=== PATIENT | male | born 1945 | race Caucasian/White ===

== ENCOUNTER 2019-07-23 06:42 | Inpatient (IN) | payer MEDICARE, BC ==
[2019-07-20 14:25] LABS: BASOPHILS % (AUTO) 0.6 % (0-1); EOSINOPHILS # (AUTO) 0.2 X10'3 (0-0.9); EOSINOPHILS % (AUTO) 2.8 % (0-6); HEMOGLOBIN A1C 6.6 % (4.5-6.2); LYMPHOCYTES # (AUTO) 2.3 X10'3 (1.1-4.8); LYMPHOCYTES % (AUTO) 29.1 % (21-51); MEAN CORPUSCULAR HEMOGLOBIN 30.9 PG (27.0-31.0); MEAN CORPUSCULAR HGB CONC 34.1 g/dL (33.0-36.5); MEAN CORPUSCULAR VOLUME 90.6 FL (78-98); MONOCYTES # (AUTO) 0.8 X10'3 (0-0.9); MONOCYTES % (AUTO) 9.6 % (2-12); NEUTROPHILS # (AUTO) 4.5 X10'3 (1.8-7.7); NEUTROPHILS % (AUTO) 57.9 % (42-75); PRE OP HEMATOCRIT 45.4 % (42.0-52.0); PRE OP HEMOGLOBIN 15.5 g/dL (14.0-17.9); PRE OP PLATELET COUNT 222 X10'3 (140-440); RED BLOOD COUNT 5.01 X10'6 (4.70-6.10); RED CELL DISTRIBUTION WIDTH 12.9 % (11.5-14.5)
[2019-07-20 14:34] LABS: ALBUMIN 3.6 G/DL (3.4-5.0); ALBUMIN/GLOBULIN RATIO 0.9 (1.1-1.5); ALKALINE PHOSPHATASE 52 IU/L (46-116); BLOOD UREA NITROGEN 32 MG/DL (7-18); BUN/CREATININE RATIO 20.3 (5.4-32.0); CALCIUM 9.1 MG/DL (8.5-10.1); CHLORIDE 108 MMOL/L (99-107); CREATININE 1.58 MG/DL (0.60-1.10); PRE OP ALT 36 U/L (30-65); PRE OP ANION GAP 10 (8-16); PRE OP AST 23 U/L (10-37); PRE OP BILIRUB, TOTAL 0.5 MG/DL (0.0-1.0); PRE OP GLUCOSE 153 MG/DL (70-104); PRE OP POTASSIUM 4.2 MMOL/L (3.4-5.1); PRE OP SODIUM 145 MMOL/L (135-145); TOTAL CARBON DIOXIDE 27.5 MMOL/L (24-32); TOTAL PROTEIN 7.8 G/DL (6.4-8.2); eGFR 43 ML/MIN
[~2019-07-23] VITALS: Ht 175.3 cm; Wt 106.6 kg
[2019-07-23] VITALS (16 sets, daily range): BP systolic 123–169; BP diastolic 58–99
[~2019-07-23 06:42] MED LIST: ASPI-611 PO; DYN250C PO; FOLI0.4T2 PO; LOSA1TAB36 PO; METF1000 PO; OMEG1CAP2 PO; ROSU20TA2 PO; VIT1CAPS9 PO
[2019-07-23] MEDS ORDERED: losartan 50mg tablet PO ONE (07:00)
[2019-07-23] MEDS ORDERED: famotidine 20mg tablet PO ONE (07:00)
[2019-07-23] MEDS ORDERED: ringers solution, lacted 1,000 ML IV SCH ×2 (07:00→10:41)
[2019-07-23] MEDS ORDERED: cefazolin/dext.iso 2gm/50ml 50 ML IV ONE (07:30)
[2019-07-23] MEDS ORDERED: ROPIVAcaine 0.5% (5mg/ml) 30ml vial ONE ×2 (08:12→13:05)
[2019-07-23] MEDS ORDERED: ketorolac trometh. 30mg/ml inj. ONE (08:12)
[2019-07-23] MEDS ORDERED: tetracaine 1% (10mg/ml) pres. free inj. ONE (10:14)
[2019-07-23] MEDS ORDERED: VANCOMYCIN INJ 1000 MG in NORMAL SALINE 250ml IV.SOLN IV ONE (10:24)
[2019-07-23] MEDS ORDERED: cefazolin/dext.iso 2gm/100 ML IV ONE (10:24)
[2019-07-23] MEDS ORDERED: tranexamic acid inj. 1,060 MG in normal saline 100ml IV soln 100 ML IV ONE (10:30)
[2019-07-23] MEDS ORDERED: ROPIVAcaine 0.2%/PF PAIN PUMP 550 ML INTERSCALE SCH (10:41)
[2019-07-23] MEDS ORDERED: ROPIVAcaine 0.2%/PF PAIN PUMP 400 ML ADDCANAL SCH (10:41)
[2019-07-23] MEDS ORDERED: labetalol 20mg/4ml (5mg/ml) syringe IV PRN (10:45)
[2019-07-23] MEDS ORDERED: morphine 4 MG/ML inj SYRINge IV PRN ×2 (10:45)
[2019-07-23] MEDS ORDERED: hydrALAZINE 20mg/ml inj. IV PRN (10:45)
[2019-07-23] MEDS ORDERED: fentaNYL/PF 50MCG/1 ML 2ML syringe IV PRN ×2 (10:45)
[2019-07-23] MEDS ORDERED: diphenhydrAMINE 50 mg/ml inj IV PRN (10:45)
[2019-07-23] MEDS ORDERED: ondansetron/PF 4mg/2ml inj IV PRN ×2 (10:45)
[2019-07-23] MEDS ORDERED: sevoflurane 250ml liquid IH ONE (10:46)
[2019-07-23] MEDS ORDERED: fentaNYL/PF 50MCG/1 ML 2ML syringe ONE (10:48)
[2019-07-23] MEDS ORDERED: MIDAZolam 1mg/ml 10ml vial ONE (10:48)
[2019-07-23] MEDS ORDERED: morphine /PF 1mg/ml 10ml inj. ONE (10:49)
[2019-07-23] MEDS ORDERED: LIDOcaine 2% (20mg/ml) 5ml vial ONE (11:26)
[2019-07-23] MEDS ORDERED: propofol inj 20 ML IV ONE (11:26)
[2019-07-23] MEDS ORDERED: ePHEDrine 50MG/ML INJ. ONE (12:04)
[2019-07-23] MEDS ORDERED: magnesium hydroxide 30ml (MOM) UD suspension PO PRN (14:00)
[2019-07-23] MEDS ORDERED: HYDROmorphone inj. 0.5 MG/0.5 ML DISP.SYRIN IV PRN (14:00)
[2019-07-23] MEDS ORDERED: diphenhydrAMINE 25mg capsule PO PRN ×2 (14:00)
[2019-07-23] MEDS ORDERED: acetaminophen 325mg tablet PO PRN (14:00)
[2019-07-23] MEDS ORDERED: bisacodyl 10mg suppository rectal RC PRN (14:00)
[2019-07-23] MEDS ORDERED: HYDROmorphone 1 mg/ml syringe IV PRN (14:00)
--- NOTE | 2019-07-23 14:10 | NUR ---
Received from OR via BED , accompanied by Anesthesiologist DR DURHAM and report given by Anesthesiolgist. PATIENT WAKING UP, DENIES PAIN, V/S WNL, NEUROVASCULAR CHECKS INTACT, 18G PIV LUE , GOLDY DRESSING TO LEFT KNEE CDI W/ COLD POWDER PACK AND ON QUE BALL W/ SCD ON. F/C DRAINING CLEAR YELLOW URINE. SENSATION T-11 .
--- NOTE | 2019-07-23 15:10 | NUR ---
PATIENT A&OX4, DENIES PAIN, V/S WNL, NEUROVASCULAR CHECKS INTACT, 18G PIV LUE , GOLDY DRESSING TO LEFT KNEE CDI W/ COLD POWDER PACK AND ON QUE BALL W/ SCD ON. F/C DRAINING CLEAR YELLOW URINE. SENSATION T-11. PATIENT TAKEN TO 4024B WITH ALL BELONGINGS AND HOOKED UP TO MONITORS IN ROOM AND REPORT GIVEN TO INTERNAL GRINDER WHO HAS TAKEN OVER PATIENT CARE.
[2019-07-23] MEDS: acetaminophen 325mg tablet PO SCH ×2 (16:09→20:00)
[2019-07-23] MEDS: ceFAZolin 1GM/D5W- ADD-VANTAGE 50 ML IV SCH ×2 (16:33→23:48)
[2019-07-23] MEDS ORDERED: tranexamic acid inj. 1,000 MG in normal saline 100ml IV soln 100 ML IV ONE (17:00)
[2019-07-23] MEDS: potassium cl 20mEq in 1/2 NS 1,000 ML IV SCH ×2 (17:12→23:48)
[2019-07-23] MEDS ORDERED: vancomycin/NS 1 GM ADD-VANTAGE 250 ML IV SCH (20:00)
[2019-07-23] MEDS ORDERED: metFORMIN 500mg tablet PO SCH (20:00)
[2019-07-23] MEDS: ondansetron/PF 4mg/2ml inj IV PRN (20:39)
[2019-07-23] MEDS: sennosides 8.6mg tablet PO SCH (21:00)
[2019-07-23] MEDS ORDERED: dextrose 50%-water 50ml dispensing syringe IV PRN ×2 (21:05)
[2019-07-23] MEDS ORDERED: glucagon, human recombinant 1mg kit SUBCUT PRN (21:05)
[2019-07-23] MEDS ORDERED: dextrose ORAL solution 15 GM/59 ML bottle PO PRN ×2 (21:05)
[2019-07-23] MEDS ORDERED: MESSAGE TO PHARMACY PO ONE (21:05)
[2019-07-24 02:00] VITALS: BP 140/69
[2019-07-24] MEDS: acetaminophen 325mg tablet PO SCH ×4 (02:00→19:24)
[2019-07-24] MEDS: oxyCODONE IR 5mg (immed. release) tablet PO PRN ×5 (04:26→19:25)
--- NOTE | 2019-07-24 04:44 | NUR ---
Hobbs catheter removed per post op protocol. Pt tolerated well. No bleeding, pain, or s/sx of trauma noted.
[2019-07-24 06:17] LABS: BASOPHILS % (AUTO) 0.4 % (0-1); EOSINOPHILS # (AUTO) 0.2 X10'3 (0-0.9); EOSINOPHILS % (AUTO) 1.6 % (0-6); HEMATOCRIT 37.3 % (42.0-52.0); HEMOGLOBIN 12.8 g/dl (14.0-17.9); LYMPHOCYTES # (AUTO) 1.8 X10'3 (1.1-4.8); LYMPHOCYTES % (AUTO) 18.2 % (21-51); MEAN CORPUSCULAR HEMOGLOBIN 31.2 PG (27.0-31.0); MEAN CORPUSCULAR HGB CONC 34.4 g/dL (33.0-36.5); MEAN CORPUSCULAR VOLUME 90.6 FL (78-98); MEAN PLATELET VOLUME 8.2 FL (7.4-10.4); MONOCYTES # (AUTO) 1.6 X10'3 (0-0.9); MONOCYTES % (AUTO) 15.9 % (2-12); NEUTROPHILS # (AUTO) 6.4 X10'3 (1.8-7.7); NEUTROPHILS % (AUTO) 63.9 % (42-75); PLATELET COUNT 169 X10'3 (140-440); RED BLOOD COUNT 4.11 X10'6 (4.70-6.10); RED CELL DISTRIBUTION WIDTH 13.1 % (11.5-14.5)
[2019-07-24 06:35] LABS: ANION GAP 11 (8-16); CHLORIDE 107 MMOL/L (99-107); POTASSIUM 3.7 MMOL/L (3.5-5.1); SODIUM 141 MMOL/L (135-145); TOTAL CARBON DIOXIDE 22.7 MMOL/L (24-32)
[2019-07-24 06:57] VITALS: BP 154/84
[2019-07-24] MEDS ORDERED: ALPRAZolam 0.5mg tablet PO ONE (07:45)
[2019-07-24] MEDS ORDERED: aspirin 81mg tablet.DR PO SCH (08:00)
[2019-07-24] MEDS: ondansetron/PF 4mg/2ml inj IV PRN (08:16)
[2019-07-24] MEDS: potassium cl 20mEq in 1/2 NS 1,000 ML IV SCH ×3 (08:16→21:57)
[2019-07-24] MEDS: losartan 50mg tablet PO SCH (08:50)
[2019-07-24] MEDS: HYDROchlorothiazide 12.5mg capsule PO SCH (08:52)
[2019-07-24] MEDS: folic acid 1mg tablet PO SCH (08:53)
[2019-07-24] MEDS: atorvastatin 20mg tablet PO SCH (08:54)
[2019-07-24] MEDS: aspirin 325mg tablet PO SCH (09:00)
[2019-07-24] MEDS: OMEGA-3/DHA/EPA/FISH OIL 1 EACH CAPSULE.DR PO SCH (09:50)
[2019-07-24 10:08] VITALS: BP 150/61
[2019-07-24 11:05] VITALS: BP 143/76
--- NOTE | 2019-07-24 11:38 | NUR ---
Student Medication Administration:For this medication-pass time frame [id number], all medications were reviewed, administered and documented per hospital policy by Colt Morales. Student documentation:I have reviewed and agree with all interventions, assessments performed and documented by Colt Morales.
--- NOTE | 2019-07-24 11:58 | NUR ---
Pt report given to nurse.
--- NOTE | 2019-07-24 14:56 | NUR ---
Joint replacement consult: Pt s/p TKA-L PO 25% first meal post-op. Noted to have nausea and vomiting last night. Pt/SO seen by RD for written/verbal high protein ed w/ RD contact information provided. Hx T2DM A1C <7. Pt agrees to chocolate ensure pudding BIDLD; dietary notified. Would benefit from ONS change once PO improves to optimize carbs on meals. LBM 07/22. Will continue to monitor for additional protein needs post-op. Addendum: 07/24/19 at [address] Amended: Links added.
[2019-07-24 18:00] VITALS: BP 142/69
[2019-07-24] MEDS: insulin Lispro (HumaLOG) vial - multi-dose SQ SCH (19:20)
[2019-07-24] MEDS: sennosides 8.6mg tablet PO SCH (21:00)
[2019-07-24] MEDS: insulin glargine (Lantus) pen - multi-dose SQ SCH (21:02)
[2019-07-24 22:00] VITALS: BP 159/74
--- NOTE | 2019-07-24 23:58 | NUR ---
Pt very confused at change of shift 1829. Pt trying to get out of bed and pull all lines, pulling at ON-Q pump and gown and pulling down his knee wrap. Pt d/c'd the ON-Q pump shortly thereafter. Once settled in, and encouraged not to pull at items, encouraged to eat dinner meal, staff left pt alone for short time. RN returned to check on pt shortly thereafter and found pt pulled his GOLDY dressing half off. RN got help to protect pt from touching wound site and proceeded to clean with clorhexidine swab and replace GOLDY dressing, saving black sx tape inside. Educated pt for safety but pt is still quite confused. moved pt to rm 4017 near to [facility] station. Gave pain medication.
[2019-07-25] MEDS: oxyCODONE IR 5mg (immed. release) tablet PO PRN ×2 (00:43→04:51)
[2019-07-25] MEDS: acetaminophen 325mg tablet PO SCH ×2 (01:55→08:03)
--- NOTE | 2019-07-25 05:05 | NUR ---
Daughter Layne called to ask about her father's state of confusion. She states that "this is not my father." he is confused and did not know the people in the room. She would like to talk to the MD and possibly get a CT to r/o stroke. Upon suggestion and upon assessment, the pt does not show s/s of stroke. Spoke to Howard Bauer NP about this and she agrees that there is no stroke symptoms. It is possible the pt is having trouble clearing the anesthesia. Pt is 2person Max assist with Steady lift and cannot perform a basic stand, or sit at bedside r/t his bilateral knee pain, as well as strength is very weak.
[2019-07-25 05:15] LABS: BASOPHILS % (AUTO) 0.3 % (0-1); EOSINOPHILS % (AUTO) 0.2 % (0-6); HEMATOCRIT 38.6 % (42.0-52.0); HEMOGLOBIN 13.2 g/dl (14.0-17.9); LYMPHOCYTES # (AUTO) 1.7 X10'3 (1.1-4.8); LYMPHOCYTES % (AUTO) 11.6 % (21-51); MEAN CORPUSCULAR HEMOGLOBIN 30.8 PG (27.0-31.0); MEAN CORPUSCULAR HGB CONC 34.1 g/dL (33.0-36.5); MEAN CORPUSCULAR VOLUME 90.2 FL (78-98); MEAN PLATELET VOLUME 8.3 FL (7.4-10.4); MONOCYTES # (AUTO) 2.4 X10'3 (0-0.9); MONOCYTES % (AUTO) 15.9 % (2-12); NEUTROPHILS # (AUTO) 10.7 X10'3 (1.8-7.7); PLATELET COUNT 179 X10'3 (140-440); RED BLOOD COUNT 4.28 X10'6 (4.70-6.10); RED CELL DISTRIBUTION WIDTH 13.2 % (11.5-14.5); WHITE BLOOD COUNT 14.9 X10'3 (4.5-11.0)
--- NOTE | 2019-07-25 05:47 | NUR ---
report given to emelia DELEON.
[2019-07-25 06:59] LABS: PLATELET ESTIMATE NORMAL; TOTAL CELLS COUNTED 100
[2019-07-25 08:05] LABS: ALANINE AMINOTRANSFERASE 20 U/L (12-78); ALBUMIN/GLOBULIN RATIO 0.8 (1.1-1.5); ALKALINE PHOSPHATASE 46 IU/L (46-116); ANION GAP 9 (8-16); ASPARTATE AMINO TRANSFERASE 44 U/L (10-37); BILIRUBIN,TOTAL 1.2 MG/DL (0.1-1.0); BLOOD UREA NITROGEN 26 MG/DL (7-18); BUN/CREATININE RATIO 18.1 (5.4-32.0); CALCIUM 8.7 MG/DL (8.5-10.1); CHLORIDE 106 MMOL/L (99-107); CREATININE 1.44 MG/DL (0.60-1.10); GLUCOSE 153 MG/DL (70-104); POTASSIUM 3.5 MMOL/L (3.5-5.1); SODIUM 142 MMOL/L (135-145); TOTAL CARBON DIOXIDE 27.1 MMOL/L (24-32); eGFR 48 ML/MIN
[2019-07-25] MEDS: losartan 50mg tablet PO SCH (08:07)
[2019-07-25] MEDS: folic acid 1mg tablet PO SCH (08:07)
[2019-07-25] MEDS: aspirin 325mg tablet PO SCH (08:07)
[2019-07-25] MEDS: ALPRAZolam 0.5mg tablet PO PRN ×2 (08:07→21:27)
[2019-07-25] MEDS: HYDROchlorothiazide 12.5mg capsule PO SCH ×2 (08:08→23:15)
[2019-07-25] MEDS: OMEGA-3/DHA/EPA/FISH OIL 1 EACH CAPSULE.DR PO SCH (08:08)
[2019-07-25] MEDS: atorvastatin 20mg tablet PO SCH (08:08)
[2019-07-25] MEDS: insulin Lispro (HumaLOG) vial - multi-dose SQ SCH ×3 (08:54→19:03)
[2019-07-25] MEDS: celeCOXIB 100mg capsule PO SCH (09:11)
[2019-07-25] MEDS: traMADol 50MG tablet PO PRN ×2 (09:11→14:51)
[2019-07-25 10:00] VITALS: BP 174/84
[2019-07-25] MEDS ORDERED: acetaminophen 325mg tablet PO PRN (14:00)
[2019-07-25 18:00] VITALS: BP 177/76
--- NOTE | 2019-07-25 18:34 | NUR ---
Problems reprioritized. Patient report given, questions answered & plan of care reviewed with Sol Carvajal RN.
[2019-07-25] MEDS: potassium cl 20mEq in 1/2 NS 1,000 ML IV SCH (19:08)
[2019-07-25] MEDS: sennosides 8.6mg tablet PO SCH (21:27)
[2019-07-25] MEDS: insulin glargine (Lantus) pen - multi-dose SQ SCH (21:29)
[2019-07-25 22:00] VITALS: BP 189/80
[2019-07-25 23:05] VITALS: BP 180/88
--- NOTE | 2019-07-25 23:07 | NUR ---
patient has increased BP of 189/80. after xanax took again for 180/88. called MD. he stated to make HCTZ BID.
[2019-07-26] MEDS: traMADol 50MG tablet PO PRN ×3 (05:26→14:56)
[2019-07-26 06:00] VITALS: BP 164/81
[2019-07-26 06:14] LABS: BASOPHILS % (AUTO) 0.1 % (0-1); EOSINOPHILS # (AUTO) 0.1 X10'3 (0-0.9); EOSINOPHILS % (AUTO) 0.6 % (0-6); HEMATOCRIT 35.5 % (42.0-52.0); HEMOGLOBIN 12.1 g/dl (14.0-17.9); LYMPHOCYTES # (AUTO) 2.1 X10'3 (1.1-4.8); LYMPHOCYTES % (AUTO) 13.4 % (21-51); MEAN CORPUSCULAR HEMOGLOBIN 31.2 PG (27.0-31.0); MEAN CORPUSCULAR HGB CONC 34.1 g/dL (33.0-36.5); MEAN CORPUSCULAR VOLUME 91.5 FL (78-98); MEAN PLATELET VOLUME 8.7 FL (7.4-10.4); MONOCYTES % (AUTO) 12.6 % (2-12); NEUTROPHILS # (AUTO) 11.3 X10'3 (1.8-7.7); NEUTROPHILS % (AUTO) 73.3 % (42-75); PLATELET COUNT 173 X10'3 (140-440); RED BLOOD COUNT 3.87 X10'6 (4.70-6.10); RED CELL DISTRIBUTION WIDTH 13.3 % (11.5-14.5); WHITE BLOOD COUNT 15.5 X10'3 (4.5-11.0)
--- NOTE | 2019-07-26 06:14 | NUR ---
Problems reprioritized. Patient report given, questions answered & plan of care reviewed with Ursula RN.
--- NOTE | 2019-07-26 06:27 | NUR ---
Patient in room ORTHO 4017. I have received report from Sol Carvajal RN and had the opportunity to ask questions and assume patient care.
[2019-07-26] MEDS: celeCOXIB 100mg capsule PO SCH (07:50)
[2019-07-26] MEDS: losartan 50mg tablet PO SCH (07:50)
[2019-07-26] MEDS: folic acid 1mg tablet PO SCH (07:51)
[2019-07-26] MEDS: HYDROchlorothiazide 12.5mg capsule PO SCH ×2 (07:51→20:38)
[2019-07-26] MEDS: atorvastatin 20mg tablet PO SCH (07:51)
[2019-07-26] MEDS: aspirin 325mg tablet PO SCH (07:52)
[2019-07-26] MEDS: OMEGA-3/DHA/EPA/FISH OIL 1 EACH CAPSULE.DR PO SCH (08:08)
[2019-07-26] MEDS: insulin Lispro (HumaLOG) vial - multi-dose SQ SCH ×3 (08:38→18:58)
[2019-07-26 09:56] VITALS: BP 145/68
[2019-07-26] MEDS ORDERED: FLU VACC QS 2019-20 (6 MOS UP) 60 MCG/0.5 ML VIAL IMVAC ONE (10:00)
[2019-07-26] MEDS ORDERED: ASPI-1 PO (12:59)
[2019-07-26] MEDS ORDERED: ALPR0.5T9 PO (12:59)
--- NOTE | 2019-07-26 14:31 | NUR ---
Initial: Pt s/p TKA-L PO 25-50% avg meals fluctuating. Receiving chocolate ensure puddings BIDLD. Pt seen by DARRIAN and reports good appetite but does not like ham and requests omelette at breakfast instead; dietary notified. LBM 07/23; pt reports constipation but also not being able to go in the hospital r/t wanting privacy. Will continue to monitor. Rec: 1. continue carb controlled diet 2. chocolate ensure pudding BIDLD 3. honor pt food preferences 4. routine bowel care 5. weekly wts Addendum: 07/26/19 at [address] Amended: Links added.
[2019-07-26 18:00] VITALS: BP 153/75
--- NOTE | 2019-07-26 18:20 | NUR ---
Problems reprioritized. Patient report given, questions answered & plan of care reviewed with Sol Carvajal RN.
[2019-07-26] MEDS: sennosides 8.6mg tablet PO SCH (20:38)
[2019-07-26] MEDS: insulin glargine (Lantus) pen - multi-dose SQ SCH (20:42)
[2019-07-26 22:00] VITALS: BP 140/74
[2019-07-27] MEDS: traMADol 50MG tablet PO PRN ×2 (05:30→12:13)
[2019-07-27 06:00] VITALS: BP 160/74
--- NOTE | 2019-07-27 06:28 | NUR ---
Problems reprioritized. Patient report given, questions answered & plan of care reviewed with ADRIENNE Finley.
--- NOTE | 2019-07-27 06:30 | NUR ---
Patient in room ORTHO 4017. I have received report from Sol Gomez and had the opportunity to ask questions and assume patient care.
[2019-07-27] MEDS: celeCOXIB 100mg capsule PO SCH (08:14)
[2019-07-27] MEDS: HYDROchlorothiazide 12.5mg capsule PO SCH (08:14)
[2019-07-27] MEDS: losartan 50mg tablet PO SCH (08:14)
[2019-07-27] MEDS: OMEGA-3/DHA/EPA/FISH OIL 1 EACH CAPSULE.DR PO SCH (08:15)
[2019-07-27] MEDS: atorvastatin 20mg tablet PO SCH (08:16)
[2019-07-27] MEDS: folic acid 1mg tablet PO SCH (08:16)
[2019-07-27] MEDS: aspirin 325mg tablet PO SCH (08:16)
[2019-07-27] MEDS: insulin Lispro (HumaLOG) vial - multi-dose SQ SCH (09:19)
[2019-07-27 10:00] VITALS: BP 138/71
--- NOTE | 2019-07-27 13:20 | NUR ---
Previously reviewed discharge instructions with pt and daughter. Pt's family has hired [facility]/[employer] private care for pt at home. Pt is alert, oriented and does not have c/o pain or discomfort at this time. Pt was picked up by [employer] for transport home.
== END 2019-07-27 13:19 | disposition home health service (06) | DRG 469 ==
LOC: PAS IN 06:42 → EDSTATUS 08:45 → ORTHO 4S 15:15
PROVIDERS: ADMIT Orthopaedic Surgery; ATTEND Orthopaedic Surgery
PROC: 3E0T3BZ Introduction of Anesthetic Agent into Peripheral Nerves and Plexi, Percutaneous Approach (ICD-10-PCS; 2019-07-23)
PROC: 8E0YXBZ Computer Assisted Procedure of Lower Extremity (ICD-10-PCS; 2019-07-23)
PROC: 8E0YXCZ Robotic Assisted Procedure of Lower Extremity (ICD-10-PCS; 2019-07-23)
PROC: 0SRD069 Replacement of Left Knee Joint with Oxidized Zirconium on Polyethylene Synthetic Substitute, Cemented, Open Approach (ICD-10-PCS; principal; 2019-07-23 10:46)
PROC: 3E02340 Introduction of Influenza Vaccine into Muscle, Percutaneous Approach (ICD-10-PCS; 2019-07-26)
DX: M17.0 Bilateral primary osteoarthritis of knee (principal); G92 Toxic encephalopathy; D62 Acute posthemorrhagic anemia; F03.90 Unspecified dementia, unspecified severity, without behavioral disturbance, psychotic disturbance, mood disturbance, and anxiety; M25.551 Pain in right hip; E11.9 Type 2 diabetes mellitus without complications; E78.5 Hyperlipidemia, unspecified; I10 Essential (primary) hypertension; Z23 Encounter for immunization; T41.3X5A Adverse effect of local anesthetics, initial encounter; Y92.238 Other place in hospital as the place of occurrence of the external cause; T50.905A Adverse effect of unspecified drugs, medicaments and biological substances, initial encounter; Z79.899 Other long term (current) drug therapy; Z79.84 Long term (current) use of oral hypoglycemic drugs; Z90.49 Acquired absence of other specified parts of digestive tract
CPT/HCPCS: 36415; 80051; 80053; 82948; 83036; 85025; 87081; 93005; 97110; 97116; 97162; 97530; A4215; A4618; A6454; A7000; C1713; C1758; C1776; G0378; J0690; J1815; J1885; J2001; J2250; J2270; J2405; J2704; J2795; J3010; J3370; J3480; J7120; Q2037

== ENCOUNTER 2021-09-15 09:55 | Emergency (ER) | payer MEDICARE, BC ==
[~2021-09-15] VITALS: Ht 175.3 cm; Wt 63.6 kg
[~2021-09-15 09:55] MED LIST changes: -ASPI-611 PO; +ASPI-612 PO; +CHOL20004 PO; +DICL100G30 TOP; -DYN250C PO; -FOLI0.4T2 PO; +FOLI0.4T6 PO; +IBUP-1984 PO; -LOSA1TAB36 PO; +LOSA1TAB41 PO; +VIT1CAPS46 PO; -VIT1CAPS9 PO
[2021-09-15 10:32] LABS: BASOPHILS % (AUTO) 0.4 % (0-1); EOSINOPHILS % (AUTO) 0.2 % (0-6); HEMOGLOBIN 12.5 g/dl (14.0-17.9); LYMPHOCYTES # (AUTO) 1.6 X10'3 (1.1-4.8); LYMPHOCYTES % (AUTO) 12.8 % (21-51); MEAN CORPUSCULAR HGB CONC 32.9 g/dL (33.0-36.5); MEAN CORPUSCULAR VOLUME 88.3 FL (78-98); MEAN PLATELET VOLUME 7.8 FL (7.4-10.4); MONOCYTES # (AUTO) 1.6 X10'3 (0-0.9); MONOCYTES % (AUTO) 12.7 % (2-12); NEUTROPHILS # (AUTO) 9.2 X10'3 (1.8-7.7); NEUTROPHILS % (AUTO) 73.9 % (42-75); PLATELET COUNT 246 X10'3 (140-440); RED CELL DISTRIBUTION WIDTH 14.1 % (11.5-14.5); WHITE BLOOD COUNT 12.5 X10'3 (4.5-11.0)
--- NOTE | 2021-09-15 10:45 | NUR ---
Returned from CT. at the bedside.
[2021-09-15 10:46] LABS: ALANINE AMINOTRANSFERASE 23 U/L (12-78); ALBUMIN 3.3 G/DL (3.4-5.0); ALBUMIN/GLOBULIN RATIO 0.7 (1.1-1.5); ALKALINE PHOSPHATASE 71 IU/L (46-116); ANION GAP 12 (8-16); ASPARTATE AMINO TRANSFERASE 20 U/L (10-37); BILIRUBIN,TOTAL 0.7 MG/DL (0.1-1.0); BLOOD UREA NITROGEN 43 MG/DL (7-18); BUN/CREATININE RATIO 19.9 (5.4-32.0); CALCIUM 9.7 MG/DL (8.5-10.1); CHLORIDE 102 MMOL/L (99-107); CREATININE 2.16 MG/DL (0.60-1.10); GLUCOSE 149 MG/DL (70-104); POTASSIUM 3.9 MMOL/L (3.5-5.1); SODIUM 140 MMOL/L (135-145); TOTAL CARBON DIOXIDE 26.2 MMOL/L (24-32); TOTAL PROTEIN 7.9 G/DL (6.4-8.2); eGFR 30 ML/MIN
--- NOTE | 2021-09-15 10:51 | NUR ---
Pt is slow to respond to questions. Denies pain. +BRODY.
[2021-09-15 10:52] VITALS: BP 147/81
[2021-09-15 11:16] LABS: CLARITY,URINE SLIGHTLY CLOUDY (Clear); COLOR,URINE YELLOW (Yellow); GLUCOSE, URINE NEGATIVE (Neg); KETONES,URINE NEGATIVE (Neg); LEUKOCYTE ESTERASE ,URINE NEGATIVE (Neg); NITRITES, URINE NEGATIVE (Neg); OCCULT BLOOD,URINE LARGE (Neg); PROTEIN,URINE 100 mg/dl (Neg); UROBILINOGEN,URINE 0.2 E.U/dL (0.2-1.0)
[2021-09-15 11:40] LABS: UA COLLECTION TYPE NON-SPECIFIED
[2021-09-15 11:44] LABS: COARSE GRANULAR CAST 0-3 /LPF (NEGATIVE); HYALINE CASTS 0-3 /LPF (NEGATIVE)
[2021-09-15 11:46] LABS: MUCUS STRANDS FEW /LPF (Neg)
[2021-09-15 11:48] LABS: RBC,URINE 50-100 /HPF (0-2)
[2021-09-15 11:49] LABS: TRANSITIONAL EPI CELLS,URINE FEW /HPF
[2021-09-15 11:50] LABS: BACTERIA,URINE FEW /HPF (Neg); WBC,URINE 0-4 /HPF (0-4)
[2021-09-15 11:51] LABS: SQUAMOUS EPITHELIAL CELL,UR FEW /LPF (FEW)
--- NOTE | 2021-09-15 12:18 | NUR ---
Pt, son, and , given and understands d/c instructions. Escorted out of the ER via wheelchair.
== END 2021-09-15 12:21 | disposition home or self-care (01) ==
LOC: ER 09:55
DX: R31.9 Hematuria, unspecified (principal); R41.0 Disorientation, unspecified; Z79.82 Long term (current) use of aspirin; Z79.899 Other long term (current) drug therapy; W19.XXXA Unspecified fall, initial encounter; Y93.89 Activity, other specified; Y92.89 Other specified places as the place of occurrence of the external cause; Y99.8 Other external cause status
CPT/HCPCS: 36415; 70450; 71045; 80053; 81001; 84484; 85025; 93005; 99285

== ENCOUNTER 2022-11-23 00:29 | Emergency (ER) | payer MEDICARE, BC ==
[~2022-11-23] VITALS: Ht 172.7 cm; Wt 86.8 kg
[2022-11-23] MEDS ORDERED: traMADol 50MG tablet PO ONE (01:15)
[2022-11-23] MEDS ORDERED: acetaminophen 325mg tablet PO ONE (01:15)
--- NOTE | 2022-11-23 01:25 | NUR ---
Patient to CT.
[2022-11-23] MEDS ORDERED: TRAM50TA2 PO (02:07)
[2022-11-23 02:21] VITALS: BP 168/91
== END 2022-11-23 02:37 | disposition home or self-care (01) ==
LOC: ER 00:30
DX: S42.202A Unspecified fracture of upper end of left humerus, initial encounter for closed fracture (principal); I12.0 Hypertensive chronic kidney disease with stage 5 chronic kidney disease or end stage renal disease; E11.22 Type 2 diabetes mellitus with diabetic chronic kidney disease; N18.9 Chronic kidney disease, unspecified; W19.XXXA Unspecified fall, initial encounter; Y93.89 Activity, other specified; Y92.89 Other specified places as the place of occurrence of the external cause; Y99.8 Other external cause status
CPT/HCPCS: 70450; 72125; 73030; 99284

== ENCOUNTER 2023-06-10 18:22 | Emergency (ER) | payer BC ==
[~2023-06-10] VITALS: Ht 172.7 cm; Wt 79.2 kg
[~2023-06-10 18:22] MED LIST changes: -DICL100G30 TOP; +DICL100G59 TOP
[2023-06-10 18:25] VITALS: BP 161/77; PULSE 77; RESP 18; TEMP 98.7; O2SAT 99
[2023-06-10 19:52] LABS: BILIRUBIN,URINE NEGATIVE (Neg); CLARITY,URINE CLEAR (Clear); COLOR,URINE YELLOW (Yellow); GLUCOSE, URINE NEGATIVE (Neg); KETONES,URINE NEGATIVE (Neg); LEUKOCYTE ESTERASE ,URINE NEGATIVE (Neg); NITRITES, URINE NEGATIVE (Neg); OCCULT BLOOD,URINE NEGATIVE (Neg); PROTEIN,URINE 30 mg/dl (Neg); UROBILINOGEN,URINE 0.2 E.U/dL (0.2-1.0)
[2023-06-10 19:55] LABS: UA COLLECTION TYPE VOIDED
[2023-06-10 19:59] LABS: BACTERIA,URINE NONE SEEN /HPF (Neg); MUCUS STRANDS NONE SEEN /LPF (Neg); RBC,URINE NONE SEEN /HPF (0-2); SQUAMOUS EPITHELIAL CELL,UR FEW /LPF (FEW); TRANSITIONAL EPI CELLS,URINE FEW /HPF; WBC,URINE 0-4 /HPF (0-4)
[2023-06-10 21:12] LABS: BASOPHILS # (AUTO) 0.1 X10'3 (0-0.2); BASOPHILS % (AUTO) 0.3 % (0-1); EOSINOPHILS # (AUTO) 0.1 X10'3 (0-0.9); EOSINOPHILS % (AUTO) 0.5 % (0-6); HEMATOCRIT 40.2 % (42.0-52.0); HEMOGLOBIN 13.3 g/dl (14.0-17.9); LYMPHOCYTES # (AUTO) 1.4 X10'3 (1.1-4.8); MEAN CORPUSCULAR HEMOGLOBIN 29.4 PG (27.0-31.0); MEAN CORPUSCULAR HGB CONC 33.2 g/dL (33.0-36.5); MEAN CORPUSCULAR VOLUME 88.3 FL (78-98); MEAN PLATELET VOLUME 7.6 FL (7.4-10.4); MONOCYTES # (AUTO) 1.2 X10'3 (0-0.9); MONOCYTES % (AUTO) 7.1 % (2-12); NEUTROPHILS # (AUTO) 14.5 X10'3 (1.8-7.7); NEUTROPHILS % (AUTO) 84.1 % (42-75); PLATELET COUNT 239 X10'3 (140-440); RED BLOOD COUNT 4.55 X10'6 (4.70-6.10); WHITE BLOOD COUNT 17.2 X10'3 (4.5-11.0)
[2023-06-10 21:27] LABS: ALANINE AMINOTRANSFERASE 25 U/L (12-78); ALBUMIN 3.8 G/DL (3.4-5.0); ALBUMIN/GLOBULIN RATIO 0.9 (1.1-1.5); ALKALINE PHOSPHATASE 75 IU/L (46-116); ANION GAP 13 (8-16); ASPARTATE AMINO TRANSFERASE 16 U/L (10-37); BILIRUBIN,TOTAL 0.5 MG/DL (0.1-1.0); BLOOD UREA NITROGEN 49 MG/DL (7-18); CALCIUM 9.5 MG/DL (8.5-10.1); CHLORIDE 106 MMOL/L (99-107); CREATININE 2.89 MG/DL (0.60-1.10); GLUCOSE 137 MG/DL (70-104); LIPASE 118 U/L (73-393); POTASSIUM 4.8 MMOL/L (3.5-5.1); SODIUM 140 MMOL/L (135-145); TOTAL CARBON DIOXIDE 21.1 MMOL/L (24-32); TOTAL PROTEIN 8.1 G/DL (6.4-8.2); eCRCL 20 ML/MIN; eGFR 21 ML/MIN
== END 2023-06-10 22:09 | disposition left against medical advice (07) ==
LOC: ER 18:23
DX: R10.9 Unspecified abdominal pain (principal); R11.10 Vomiting, unspecified; Z53.21 Procedure and treatment not carried out due to patient leaving prior to being seen by health care provider
CPT/HCPCS: 36415; 80053; 81001; 83690; 85025; 99281

== ENCOUNTER 2024-04-18 11:36 | Emergency (ER) | payer BC ==
[~2024-04-18] VITALS: Ht 165.1 cm; Wt 91.8 kg
[2024-04-18 11:38] VITALS: TEMP 98.5
[2024-04-18] MEDS: LIDOcaine 1% W/epiNEPHrine 1:100,000 20ml vial IJ ONE (11:50)
[2024-04-18 13:34] VITALS: BP 161/82; PULSE 66; RESP 19; O2SAT 98
== END 2024-04-18 13:54 | disposition home or self-care (01) ==
LOC: ER 11:37
DX: S01.01XA Laceration without foreign body of scalp, initial encounter (principal); I12.9 Hypertensive chronic kidney disease with stage 1 through stage 4 chronic kidney disease, or unspecified chronic kidney disease; E11.22 Type 2 diabetes mellitus with diabetic chronic kidney disease; N18.9 Chronic kidney disease, unspecified; M54.2 Cervicalgia; R51.9 Headache, unspecified; Z79.82 Long term (current) use of aspirin; Z79.1 Long term (current) use of non-steroidal anti-inflammatories (NSAID); Z79.899 Other long term (current) drug therapy; Z79.84 Long term (current) use of oral hypoglycemic drugs; W19.XXXA Unspecified fall, initial encounter; Y93.89 Activity, other specified; Y92.89 Other specified places as the place of occurrence of the external cause; Y99.8 Other external cause status
CPT/HCPCS: 12001; 70450; 72125; 99284; J7030; A6446; A6449